=== PATIENT | male | born 1960 | race Caucasian/White ===

== ENCOUNTER 2018-10-09 10:51 | Observation (INO) ==
[2018-10-09 11:02] LABS: Urine Bilirubin Negative (NEGATIVE); Urine Blood 250 /ul (NEGATIVE); Urine Ketone 15 mg/dL (NEGATIVE); Urine Nitrite Negative (NEGATIVE); Urine Protein 15 mg/dL (NEGATIVE); Urine Specific Gravity >=1.030 SP.GR. (1.005-1.030); Urine Urobilinogen Normal (NORMAL); Urine pH 5.5 pH (5.0-7.0)
[2018-10-09] MEDS ORDERED: NORMAL SALINE 1,000 ML IV ONE (11:02)
[2018-10-09] MEDS ORDERED: ACETAMINOPHEN 500 MG TABLET PO ONE (11:07)
--- NOTE | 2018-10-09 11:07 | ERNOTE ---
Medical Problem HPI - Narrative Date of Service: 10/09/18 - General Time Seen by Provider: 10/09/18 10:55 Source: patient, EMS Exam Limitations: no limitations - Immun/Allergies/Home Medications Immunizations: IMMUNIZATION HX Immunizations Up to Date Yes History of Influenza Vaccine No Hx Pneumococcal Vaccination No Allergies/Adverse Reactions: Allergies gabapentin [From Neurontin] Allergy (Unknown, Verified 10/09/18 12:06) breast tissues swelling, nipples hardened breast tissues swelling, nipples hardened nitrofurantoin [Nitrofurantoin] Allergy (Unknown, Verified 10/09/18 12:06) Hives pregabalin [From Lyrica] Allergy (Unknown, Verified 10/09/18 12:06) nipples hardened, breast swelling nipples hardened, breast swelling sulfamethoxazole [From Bactrim] Allergy (Verified 10/09/18 12:06) itching Home Medications: HOME MEDICATIONS Diazepam [Valium] 10 mg PO QID PRN 02/24/12 [Last Taken Unknown] Morphine Sulfate [Morphine Sulfate ER] 30 mg PO QID PRN 06/01/15 [Last Taken Unknown] oxyCODONE HCL [Oxycodone HCl] 30 mg PO QID PRN 06/01/15 [Last Taken Unknown] PowerWheelchair See Dose Instructions .ROUTE .MEDSUPPLY #1 ea 09/18/18 [Last Taken Unknown] lisinopril 5 mg tablet 5 mg PO DAILY 09/18/18 [Last Taken Unknown] - History of Present History Narrative: patient presents from home with report of fever and alterred mental status, past hx of traumatic praplegia Timing: constant Severity: moderate Modifying Factors - (Improves): Present: other - nothing Modifying Factors - (Worsens): Present: other - nothing Review of Systems - Review of Systems Constitutional: Present: See HPI, fever, chills, other - alterred mental staus EYE: Present: no symptoms reported ENT: Present: no symptoms reported Respiratory: Present: no symptoms reported Cardiology: Present: no symptoms reported Gastrointestinal/Abdominal: Present: no symptoms reported Genitourinary: Present: no symptoms reported Musculoskeletal: Present: no symptoms reported Skin: Present: no symptoms reported Neurological: Present: no symptoms reported Endocrine: Present: no symptoms reported Hematologic/Lymphatic: Present: no symptoms reported Psych: Present: no symptoms reported All Other Systems: All systems neg except as marked Medical History (Updated 09/18/18 @ 13:37 by Barbara Antonio RN) L2 spinal cord injury Shoulder pain, left Onset Date: 09/18/18 Shoulder pain, right Onset Date: Unknown Hypercholesteremia Onset Date: ~1997 Hypertension Onset Date: ~2006 Paralysis Onset Date: Unknown injury to spine- hips down Calculus, bladder Onset Date: ~1993 Hernia Onset Date: ~1991 Surgical History: Surgical History (Updated 12/11/17 @ 16:11 by Ronaldo Connors MA) H/O inguinal hernia repair Onset Date: ~1986 left History of appendectomy Onset Date: ~1997 ruptured History of spinal surgery Onset Date: ~1986 fx L2 (due to injury-paralysi), steel rods, removed rods 1983, 1984, 1986 I&D knee, left Onset Date: ~06/15/12 S/P left knee arthroscopy Onset Date: Unknown x 3 before age 23 S/P wisdom tooth extraction Onset Date: ~1981 Family History: Family History (Updated 12/11/17 @ 16:04 by Ronaldo Cononrs MA) Mother Osteoarthritis Father , 64 Emphysema lung Social History: (Last Reviewed 10/09/18 @ 12:06 by Hang Glass RN) Social History: Marital status: lives independently: Yes household members: none current occupational status: disabled Service: No Tobacco: Smoking Status: Former smoker Alcohol: alcohol intake: current alcohol intake frequency: holiday/special occasion Substance Use: substance use type: does not use Dietary Habits: caffeine: Yes Type: coffee Physical Exam - Physical Exam General Appearance: Present: mild distress, anxious, other - mildly confused Head Exam: Present: normal inspection, no evidence of injury Eye Exam: Normal inspection: bilateral, PERRL: bilateral, EOMI: bilateral Ears, Nose, Throat: Present: normal ENT inspection, normal pharynx Neck: Present: normal inspection, nontender Respiratory: Present: no respiratory distress, normal breath sounds, no accessory muscle use, chest nontender, lungs clear Cardiovascular/Chest: Present: regular rate, rhythm, no murmur, normal peripheral pulses Male Genitals Exam: Present: normal genitalia Back Exam: Present: normal inspection, normal range of motion, no CVA tenderness Extremity Exam: Present: other - parlyssis of lower extremmities Neurological Exam: Present: alert, disoriented to place, disoriented to situation Skin Exam: Present: normal color, warm/dry Lymphatic Exam: Present: no adenopathy Progress - Date and Time Seen: Date and Time: 10/09/18 13:49 patient improved somewhat case discussed with dr alvraado, patient admitted to observation - Results and Orders Patient's Lab Results:: I have reviewed the patient's lab results. - Vital Signs Patient's Vital Signs:: I have reviewed the patient's vital signs. - EKG EKG #1 EKG: supraventricular tachycardia - X-Ray X-Ray #1 X-Ray: chest Interpretation: Discd w/ radiologist - no acute process - CT/Ultrasound CT/Ultrasound Narrative: ct head no acute process, ct stone protocol no acute process - Progress/Reassessment Progress:: Improved - Transfer of Care Expected Disposition: Admit Plan - Plan Plan: to admit to observation Departure Clinical Impression: Fever of unknown origin (FUO) - Departure Disposition: Short Term Hospital Inpatient Condition: Serious Referrals: Cruzito Burch [Other]
[2018-10-09 11:15] LABS: Urine Appearance Cloudy (CLEAR); Urine Bacteria TRACE; Urine Color Red; Urine RBC >50 /hpf (0-5); Urine WBC 0-5 /hpf (0-5)
[2018-10-09 11:17] LABS: Urine Transitional Epi Cells TRACE /hpf
[2018-10-09 11:22] LABS: Hematocrit 37.4 % (42.0-52.0); Hemoglobin 12.3 gm/dL (13.5-18.0); Mean Cell Volume 93.7 fl (78-100); Mean Corpuscular Hemoglobin 30.8 pg (27-31); Mean Corpuscular Hgb Conc 32.9 g/dl (32-36); Mean Platelet Volume 9.7 fl (8-11.3); Platelet Count 175 K/mm3 (150-450); Red Blood Count 3.99 M/mm3 (4.7-6.0); Red Cell Distribution Width 12.5 % (11.5-14.0); White Blood Count 13.4 K/mm3 (4.0-10.5)
[2018-10-09 11:29] LABS: Total Cells Counted 100
[2018-10-09 11:40] LABS: Albumin * 3.4 gm/dl (3.4-5.0); Anion Gap 10.4 mmol/L (6.8-13.8); BUN/Creatinine Ratio 19.1 (9.0-21.6); Bilirubin, Total 1.8 mg/dL (0.0-1.1); Ca. Corrected For Albumin 8.7 mg/dL (8.4-10.2); Calcium * 8.5 mg/dL (7.9-10.9); Carbon Dioxide 28.6 mmol/L (24-32.6); Total Protein 7.1 gm/dL (6.2-8.2)
[2018-10-09 11:46] LABS: CRP 13.1 mg/dL (0.0-0.9)
[2018-10-09 11:54] LABS: Atypical (Reactive) Lymph 3 % (0-2); Band 2 % (0-2.0); Lymphocyte 6 % (20-51); Monocyte 19 % (0-9); Neutrophil 70 % (42-75); Neutrophil # 9.4 K/mm3 (1.3-6.0); Platelet Estimate Normal (NORMAL); RBC Morphology Normal (NORMAL)
[2018-10-09] MEDS ORDERED: LORazepam 2 MG/ML DISP.SYRIN IV ONE (12:32)
[2018-10-09] MEDS ORDERED: cefTRIAXone SODIUM 1,000 MG/100 ML BAG IV ONE (12:56)
[2018-10-09] MEDS: NORMAL SALINE 1,000 ML IV PRN ×2 (15:29→23:35)
--- NOTE | 2018-10-09 16:47 | HP ---
Chief Complaint - Chief Complaint Date of Service: 10/09/18 Time of Service: 16:46 Chief Complaint: altered mental status History of Present Illness: Pt has a PMHx of traumatic paraplegia since 1983. He lives at home. He'd been having increased shoulder pain for the last week, and has been undergoing physical therapy. His mother, who provides the history, went to check on him yesterday, and he was "talking out of his head." He was not himself, and sleeping more than normal. He ate supper last night. She again went to check on him today, and his house was a mess, furniture was turned over, and he was still not acting like himself, so she called EMS. She does not think he'd had a recent cough or infectious symptoms. She suspects he may have taken too many meds, as he has done that in the past. She thinks he may have fallen at home, given the state of his house. Work up in the ED showed a slight elevated in WBC of 13.5, lactate not elevated at 1.0, procalcitonin not elevated at 0.1. CXR did not show anything acute, CT head and CT abd/pel also without acute findings. UA, collected via straight cath, showed blood and increased specific gravity greater than 1.03. UDS was positive for benzodiazepines, opiates, and marijuana. His medication list does include the benzos and opiates. [facility] name was not [facility] in the [facility]. At the time of my exam, he is somnolent. Nursing reports he has been somnolent since receiving 0.5 mg IV ativan for his CT. He briefly wakes to answer some questions, but most of the history is obtained from his mother. Medical History (Updated 10/09/18 @ 16:47 by Ne Velásquez DO) L2 spinal cord injury Shoulder pain, left Onset Date: 09/18/18 Shoulder pain, right Onset Date: Unknown Hypercholesteremia Onset Date: ~1997 Hypertension Onset Date: ~2006 Paralysis Onset Date: Unknown injury to spine- hips down Calculus, bladder Onset Date: ~1993 Hernia Onset Date: ~1991 Surgical History: Surgical History (Updated 10/09/18 @ 16:47 by Ne Velásquez DO) H/O inguinal hernia repair Onset Date: ~1986 left History of appendectomy Onset Date: ~1997 ruptured History of spinal surgery Onset Date: ~1986 fx L2 (due to injury-paralysi), steel rods, removed rods 1983, 1984, 1986 I&D knee, left Onset Date: ~06/15/12 S/P left knee arthroscopy Onset Date: Unknown x 3 before age 23 S/P wisdom tooth extraction Onset Date: ~1981 Family History: Family History (Updated 12/11/17 @ 16:04 by Ronaldo Connors MA) Mother Osteoarthritis Father , 64 Emphysema lung Social History: (Last Reviewed 10/09/18 @ 14:31 by Cece Edge RN) Social History: Marital status: lives independently: Yes household members: none current occupational status: disabled Service: No Tobacco: Smoking Status: Former smoker Alcohol: alcohol intake: current alcohol intake frequency: holiday/special occasion Substance Use: substance use type: does not use Dietary Habits: caffeine: Yes Type: coffee Review Of Systems (GEN) - Review of Systems Generalized/Overall Review: Present: No Symptoms Reported - Unable to obtain ROS from patient, but mother is not aware of recent complaints Immunizations: IMMUNIZATION HX Immunizations Up to Date Yes History of Influenza Vaccine Yes Hx Pneumococcal Vaccination More Information Required Allergies/Adverse Reactions: Allergies Allergy/AdvReac Type Severity Reaction Status Date / Time gabapentin [From Neurontin] Allergy Unknown breast Verified 10/09/18 12:06 tissues swelling, nipples hardened nitrofurantoin Allergy Unknown Hives Verified 10/09/18 12:06 [Nitrofurantoin] pregabalin [From Lyrica] Allergy Unknown nipples Verified 10/09/18 12:06 hardened, breast swelling sulfamethoxazole Allergy itching Verified 10/09/18 12:06 [From Bactrim] Home Medications: HOME MEDICATIONS Diazepam [Valium] 10 mg PO QID PRN 02/24/12 [Last Taken Unknown] Morphine Sulfate [Morphine Sulfate ER] 30 mg PO QID PRN 06/01/15 [Last Taken Unknown] oxyCODONE HCL [Oxycodone HCl] 30 mg PO QID PRN 06/01/15 [Last Taken Unknown] PowerWheelchair See Dose Instructions .ROUTE .MEDSUPPLY #1 ea 09/18/18 [Last Taken Unknown] lisinopril 5 mg tablet 5 mg PO DAILY 09/18/18 [Last Taken Unknown] Exam - Exam Vital Signs: Vital Signs - Last Taken Temp 36.8 C 10/09/18 14:36 Pulse 99 10/09/18 14:36 Resp 12 10/09/18 14:36 BP 118/78 10/09/18 14:36 Pulse Ox 100 10/09/18 14:36 Constitutional: Present: Somnolent ENT Exam: Present: dry mucous membranes Respiratory: Present: lungs clear Cardiovascular/Chest: Present: regular rate, rhythm Abdomen: Present: Normal bowel sounds, soft Extremity: Present: swelling - RLE, other - large medial ecchymosis of right ankle Skin Exam: Present: other - 2 2-4 cm bulla of right medial lower leg Neurologic: Present: sensory deficit - unable to feel sensation of bilateral lower legs Diagnostic Studies: Abnormal Lab Results 10/09/18 10/09/18 10/09/18 Range/Units 10:56 11:20 11:20 WBC 13.4 H (4.0-10.5) K/mm3 RBC 3.99 L (4.7-6.0) M/mm3 Hgb 12.3 L (13.5-18.0) gm/dL Hct 37.4 L (42.0-52.0) % Lymphocytes % (Manual) 6 L (20-51) % Monocytes % (Manual) 19 H (0-9) % Neutrophils # (Manual) 9.4 H (1.3-6.0) K/mm3 Lymphocytes # (Manual) 0.8 L (1.5-3.5) k/mm3 Monocytes # (Manual) 2.5 H (0.0-1.0) k/mm3 Atypic/Reactive Lymphs 3 H (0-2) % Random Glucose 121 H (70-110) mg/dL Total Bilirubin 1.8 H (0.0-1.1) mg/dL ALT 16 L (19-67) U/L C-Reactive Prot, Quant 13.1 H (0.0-0.9) mg/dL Urine Protein 15 H (NEGATIVE) mg/dL Urine Blood 250 H (NEGATIVE) /ul Urine RBC >50 H (0-5) /hpf Ur Epithelial Cells 10-25 H (0-5) /hpf Laboratory Results WBC 13.4 K/mm3 (4.0-10.5) H 10/09/18 11:20 RBC 3.99 M/mm3 (4.7-6.0) L 10/09/18 11:20 Hgb 12.3 gm/dL (13.5-18.0) L 10/09/18 11:20 Hct 37.4 % (42.0-52.0) L 10/09/18 11:20 MCV 93.7 fl (78-100) 10/09/18 11:20 MCH 30.8 pg (27-31) 10/09/18 11:20 MCHC 32.9 g/dl (32-36) 10/09/18 11:20 RDW 12.5 % (11.5-14.0) 10/09/18 11:20 Plt Count 175 K/mm3 (150-450) 10/09/18 11:20 MPV 9.7 fl (8-11.3) 10/09/18 11:20 70 % (42-75) 10/09/18 11:20 Band Neuts % (Manual) 2 % (0-2.0) 10/09/18 11:20 6 % (20-51) L 10/09/18 11:20 19 % (0-9) H 10/09/18 11:20 9.4 K/mm3 (1.3-6.0) H 10/09/18 11:20 0.8 k/mm3 (1.5-3.5) L 10/09/18 11:20 2.5 k/mm3 (0.0-1.0) H 10/09/18 11:20 Atypic/Reactive Lymphs 3 % (0-2) H 10/09/18 11:20 Normal (NORMAL) 10/09/18 11:20 RBC Morphology Normal (NORMAL) 10/09/18 11:20 Sodium 136 mmol/L (132-142) 10/09/18 11:20 136 mmol/L (130-142) 10/09/18 11:20 Potassium 4.0 mmol/L (3.4-4.6) 10/09/18 11:20 Chloride 101 mmol/L (97-106) 10/09/18 11:20 Carbon Dioxide 28.6 mmol/L (24-32.6) 10/09/18 11:20 10.4 mmol/L (6.8-13.8) 10/09/18 11:20 BUN 13 mg/dL (6-23) 10/09/18 11:20 0.68 mg/dL (0.4-1.4) 10/09/18 11:20 Est GFR (Non-Af Amer) 127 mL/min (60-130) 10/09/18 11:20 19.1 (9.0-21.6) 10/09/18 11:20 121 mg/dL (70-110) H 10/09/18 11:20 1.0 mmol/L (0.4-2.0) 10/09/18 11:20 Calcium 8.5 mg/dL (7.9-10.9) 10/09/18 11:20 Calcium Adj for Albumin 8.7 mg/dL (8.4-10.2) 10/09/18 11:20 1.8 mg/dL (0.0-1.1) H 10/09/18 11:20 AST 18 U/L (0-48) 10/09/18 11:20 ALT 16 U/L (19-67) L 10/09/18 11:20 114 U/L (50-170) 10/09/18 11:20 C-Reactive Prot, Quant 13.1 mg/dL (0.0-0.9) H 10/09/18 11:20 7.1 gm/dL (6.2-8.2) 10/09/18 11:20 3.4 gm/dl (3.4-5.0) 10/09/18 11:20 0.10 ng/mL (0.05-0.50) 10/09/18 11:20 Red 10/09/18 10:56 Cloudy (CLEAR) 10/09/18 10:56 5.5 pH (5.0-7.0) 10/09/18 10:56 Ur Specific [place] >=1.030 SP.GR. (1.005-1.030) 10/09/18 10:56 15 mg/dL (NEGATIVE) H 10/09/18 10:56 Negative mg/dL (NEGATIVE) 10/09/18 10:56 15 mg/dL (NEGATIVE) 10/09/18 10:56 250 /ul (NEGATIVE) H 10/09/18 10:56 Negative (NEGATIVE) 10/09/18 10:56 Negative mg/dl (NEGATIVE) 10/09/18 10:56 Prot Sulfosalicylic Acd 1+ mg/dL (0) 10/09/18 10:56 Normal EU/dl (NORMAL) 10/09/18 10:56 Ur Leukocyte Esterase Negative /ul (NEGATIVE) 10/09/18 10:56 >50 /hpf (0-5) H 10/09/18 10:56 0-5 /hpf (0-5) 10/09/18 10:56 Ur Epithelial Cells 10-25 /hpf (0-5) H 10/09/18 10:56 Ur Transition Epith Cell Trace /hpf (NONE) 10/09/18 10:56 Trace (NONE) 10/09/18 10:56 Culture to follow 10/09/18 10:56 Assessment/Plan - Assessment/Plan (1) Encephalopathy acute Assessment: Ddx includes medication overdose, infectious source, electrolyte imbalance, hypoxemia, renal failure, chronic alcohol use. With negative procalcitonin and being afebrile, infection is less likely, but blood cultures are pending. He does not have significant electrolyte abnormalities. He is oxygenating well on room air. Creatinine is 0.68, and GFR is 127, so his renal function is intact. His mother reports he does not drink alcohol regularly. Medication overdose is most likely, especially with marijuana present on UDS. Will continue q4h neuro checks, and reassess in the morning. Problem: Acute (2) Paraplegia Assessment: Since injury in 1983. Currently lives alone. Discussed with his mother the potential possibility of him needing to live in a facility if he is unable to care for himself at home. Problem: Chronic (3) Chronic pain disorder Assessment: Will hold his narcotics for now, since he has not regained baseline mentation. Will resume when he is fully alert and able to swallow, and if he has pain. Problem: Chronic (4) Hematuria Assessment: May have been from the catheterization. Recommend repeat. Will need to assess for dysuria when he is more alert. Problem: Acute (5) Ankle bruise Assessment: He may have fallen at home, and x-ray has been obtained. Bony demineralization seen, and official read pending. He has some bulla of that right medial lower leg as well, and will need to ensure these do not develop into cellulitis. Problem: Acute
[2018-10-09 17:22] LABS: Cocaine Ur Negative (NEGATIVE); Urine Barbiturate Negative (NEGATIVE); Urine Benzodiazepines Positive (NEGATIVE); Urine Opiates Positive (NEGATIVE); Urine PCP Negative (NEGATIVE); Urine THC Positive (NEGATIVE)
[2018-10-10] MEDS: NORMAL SALINE 1,000 ML IV PRN (08:27)
[2018-10-10] MEDS ORDERED: POLYETHYLENE GLYCOL 3350 17 GM PACKET PO SCH (09:45)
--- NOTE | 2018-10-10 13:01 | DS ---
(1) Encephalopathy acute Problem: Resolved (2) Paraplegia Problem: Chronic (3) Chronic pain disorder Problem: Chronic (4) Hematuria Problem: Acute (5) Ankle bruise Problem: Acute Description of Stay: Pt has a PMHx of traumatic paraplegia since 1983. He lives at home. He'd been having increased shoulder pain for the last week, and has been undergoing physical therapy. His mother, who provides the history, went to check on him the day prior to admission, and he was "talking out of his head." He was not himself, and sleeping more than normal. She again went to check on him the following day, and his house was a mess, furniture was turned over, and he was still not acting like himself, so she called EMS. She does not think he'd had a recent cough or infectious symptoms. She suspects he may have taken too many meds, as he has done that in the past. She thinks he may have fallen at home, given the state of his house. Work up in the ED showed a slight elevated in WBC of 13.5, lactate not elevated at 1.0, procalcitonin not elevated at 0.1. CXR did not show anything acute, CT head and CT abd/pel also without acute findings. UA, collected via straight cath, showed blood and increased specific gravity greater than 1.03. UDS was positive for benzodiazepines, opiates, and marijuana. His medication list does include the benzos and opiates. His name was not found in the [facility]. Per his pharmacy, he is prescribed 30 mg oxycontin IR q4h prn, 30 mg morphine IR q4-6 hr, 10 mg valium qid, 5 mg cyclobenzaprine qhs. Family states he routinely takes something every [address] hours[address] Recommend he does not drive while prescribed such a large amount of narcotics, benzos, and a muscle relaxer. He is at risk for further hospitalizations with that medication regimen. At the time of my admission exam, he was somnolent. Nursing reports he has been somnolent since receiving 0.5 mg IV ativan for his CT. He briefly wakes to answer some questions, but most of the history is obtained from his mother. The day after admission, he was awake, alert, eating breakfast for my exam. It was felt his presentation was secondary to an accidental medication overdose. He had extensive bruising of his right lower leg anteriorly, and medially over his right ankle. Xray was inconclusive for fracture. Recommend watching his skin closely after DC, as he has had problems with ulcers in the past. Will schedule him with the wound center. His admission UA, obtained via straight cath, was also positive for blood. Recommend repeat UA at hospital follow up visit. He was evaluated by PT, who recommended placement for further physical therapy, but he declined. He also declined home health. Procedures Performed: none Results and Findings: Pending Mircobiology Results 10/09/18 11:21 Blood Blood Culture - Preliminary NO GROWTH 24 HOURS 10/09/18 11:20 Blood Blood Culture - Preliminary NO GROWTH 24 HOURS 10/09/18 10:56 Urine,Catheterized Urine Culture - Preliminary No Growth Lab Pending Results 10/09/18 10:56: Urine Color Red, Urine Appearance Cloudy, Urine pH 5.5, Ur Specific [place] >=1.030, Urine Protein 15 H, Urine Glucose (UA) Negative, Urine Ketones 15, Urine Blood 250 H, Urine Nitrate Negative, Urine Bilirubin Negative, Prot Sulfosalicylic Acd 1+, Urine Urobilinogen Normal, Ur Leukocyte Esterase Negative, Urine RBC >50 H, Urine WBC 0-5, Ur Epithelial Cells 10-25 H, Ur Transition Epith Cell Trace, Urine Bacteria Trace, Urine Culture Comments Culture to follow 10/09/18 11:20: WBC 13.4 H, RBC 3.99 L, Hgb 12.3 L, Hct 37.4 L, MCV 93.7, MCH 30.8, MCHC 32.9, RDW 12.5, Plt Count 175, MPV 9.7, Neutrophils % (Manual) 70, Band Neuts % (Manual) 2, Lymphocytes % (Manual) 6 L, Monocytes % (Manual) 19 H, Neutrophils # (Manual) 9.4 H, Lymphocytes # (Manual) 0.8 L, Monocytes # (Manual) 2.5 H, Atypic/Reactive Lymphs 3 H, Platelet Estimate Normal, RBC Morphology Normal 10/09/18 11:20: Sodium 136, Plasma Sodium 136, Potassium 4.0, Chloride 101, Carbon Dioxide 28.6, Anion Gap 10.4, BUN 13, Creatinine 0.68, Est GFR (Non-Af Amer) 127, BUN/Creatinine Ratio 19.1, Random Glucose 121 H, Calcium 8.5, Calcium Adj for Albumin 8.7, Total Bilirubin 1.8 H, AST 18, ALT 16 L, Alkaline Phosphatase 114, C-Reactive Prot, Quant 13.1 H, Total Protein 7.1, Albumin 3.4 10/09/18 11:20: Lactic Acid, Venous 1.0 10/09/18 11:20: Procalcitonin 0.10 10/09/18 17:06: Urine Opiates Screen Positive H, Barbiturate Screen Negative, Ur Phencyclidine Scrn Negative, Urine Amphetamine Negative, U Benzodiazepines Scrn Positive H, Urine Cocaine Screen Negative, Urine Marijuana (THC) Positive H Discharge Location: Home Disposition: Home self-care Condition: Fair Discharge Activity: Activity as tolerated Discharge Diet: General/regular food Referrals: Cruzito Burch [Other] - One Week Additional Patient Instructions (free text): -Please make TCM appointment unless jail discharge, or if following up with outside provider. Thank you! Yazmin @ [place] [address] or Ne at [phone]. Please schedule with the wound center early next week for anterior right lower extremity abrasion. Patient has a history of an MRSA infection. Prescriptions (Any new or edited meds): Polyethylene Glycol 3350 [Miralax] 17 gm PO DAILY #1 bottle Complete Home Medications List: Complete Home Medication List: Diazepam [Valium] 10 mg PO QID PRN 02/24/12 oxyCODONE HCL [Oxycodone HCl] 30 mg PO Q4H PRN 06/01/15 PowerWheelchair See Dose Instructions .ROUTE .MEDSUPPLY #1 ea 09/18/18 lisinopril 5 mg tablet 5 mg PO DAILY 09/18/18 Cyclobenzaprine HCl 5 mg PO HS 10/10/18 Morphine Sulfate 30 mg PO Q6H PRN 10/10/18 Polyethylene Glycol 3350 [Miralax] 17 gm PO DAILY #1 bottle 10/10/18
[2018-10-10 16:16] VITALS: BP 128/73
== END 2018-10-10 16:05 | disposition home or self-care (01) ==
LOC: ER 10:51 → MS 10:51
PROVIDERS: ADMIT Family Medicine; ATTEND Family Medicine
DX: R41.82 Altered mental status, unspecified; G93.40 Encephalopathy, unspecified; S90.00XA Contusion of unspecified ankle, initial encounter; G82.20 Paraplegia, unspecified; R31.9 Hematuria, unspecified; R52 Pain, unspecified
CPT/HCPCS: 36415; 70450; 71010; 71045; 73610; 74176; 80053; 80307; 81001; 83605; 84145; 85025; 86140; 87040; 87081; 87086; 93005; 96361; 96365; 96366; 96375; 97162; 99284; G0378